=== PATIENT | male | born 1995 | race African-American/Black ===

== ENCOUNTER → 2023-03-25 | Emergency (ER) | payer BC ==
--- OUTSIDE RECORDS SUMMARY | 2023-03-25 20:14 | XMS REPORT | Continuity of Care Document ---
Author Name Unknown Address [address] [facility] [address] [place] [address] [facility] Address [address] [facility] [address] [place] [address] Care Team Providers Care Sleeve Turner Name Role Phone Minnie Stearns Attending Clinician Unavailable Problems Condition Name Condition Details Condition Category Status Onset Date Resolution Date Last Treatment Date Treating Clinician Comments Source [id number] Primary insomnia Problem [facility] [id number] Possible exposure to STD Problem [facility] [id number] Fatigue, unspecifie d type Problem [facility] Social History Social Habit Start Date Stop Date Quantity Comments Source History of Tobacco Use [facility] Sex Assigned At [facility] Smoking Status Start Date Stop Date Source Never Smoker [facility] Medications Ordered Medication Name Filled Medication Name Start Date Stop Date Current Medication? Ordering Clinician Indication Dosage Frequency Signature (SIG) Comments Components Source No Known Medications No Known Medications No [facility] No Known Medications No Known Medications No [facility] No Known Medications No Known Medications No [facility] No Known Medications No Known Medications No [facility] Vital Signs Vital Name Observation Time Observation Value Comments S ource height 2022-09-15 08:00:00 75 [in_i] Commo n [facility] weight 2022-09-15 08:00:00 227.4 [lb_av] Co mmon [facility] temperature 2022-09-15 08:00:00 97.8 [degF] Com mon [facility] bmi 2022-09-15 08:00:00 28.42 kg/m2 Comm on [facility] oximetry 2022-09-15 08:00:00 97 % Commo n [facility] respiratory rate 2022-09-15 08:00:00 16 /min Common [facility] blood pressure systolic 2022-09-15 08:00:00 135 mm[Hg] [facility] blood pressure diastolic 2022-09-15 08:00:00 76 mm[Hg] Common [facility] height 2022-03-17 08:40:00 75 [in_i] Commo n [facility] weight 2022-03-17 08:40:00 208.4 [lb_av] Co [facility] temperature 2022-03-17 08:40:00 98.4 [degF] Com [facility] bmi 2022-03-17 08:40:00 26.05 kg/m2 Comm on [facility] oximetry 2022-03-17 08:40:00 97 % Commo n [facility] respiratory rate 2022-03-17 08:40:00 16 /min Common [facility] blood pressure systolic 2022-03-17 08:40:00 136 mm[Hg] Common [facility] blood pressure diastolic 2022-03-17 08:40:00 72 mm[Hg] Common [facility] height 2021-09-15 08:40:00 Commo n [facility] weight 2021-09-15 08:40:00 205 [lb_av] Comm on [facility] temperature 2021-09-15 08:40:00 97.8 [degF] Com mon [facility] bmi 2021-09-15 08:40:00 25.62 kg/m2 Comm on [facility] oximetry 2021-09-15 08:40:00 100 % Commo n [facility] respiratory rate 2021-09-15 08:40:00 18 /min Common [facility] blood pressure systolic 2021-09-15 08:40:00 119 mm[Hg] [facility] blood pressure diastolic 2021-09-15 08:40:00 62 mm[Hg] [facility] height 2021-09-01 09:00:00 Commo n [facility] weight 2021-09-01 09:00:00 203.4 [lb_av] Co mmon [facility] temperature 2021-09-01 09:00:00 97.2 [degF] Com mon [facility] bmi 2021-09-01 09:00:00 25.42 kg/m2 Comm on [facility] oximetry 2021-09-01 09:00:00 99 % Commo n [facility] respiratory rate 2021-09-01 09:00:00 16 /min [facility] blood pressure systolic 2021-09-01 09:00:00 129 mm[Hg] [facility] blood pressure diastolic 2021-09-01 09:00:00 73 mm[Hg] [facility] Encounters Start Date/Time End Date/Time Encounter Type Admission Type Attending Clinicians Care Facility Care Department Encounter ID Source 2022-09-13 07:38[id number] [facility] 2022-03-15 09:10:05 Outpatient Minnie Stearns [facility] [id number] [facility] 2021-10-14 16:12:01 Outpatient Minnie Stearns [facility] [id number] [facility] 2021-09-01 09:13:02 Outpatient Minnie Stearns [facility] [id number] [facility] 2022-09-15 00:00:00 2022-09-15 00:00:00 [facility] [id number] 2022-03-17 00:00:00 2022-03-17 00:00:00 [facility]V VISIT EST AGE 18-39 [facility] [id number] [facility] 2021-09-15 00:00:00 2021-09-15 00:00:00 OFF[facility]IT EST [facility] [id number] [facility] 2021-09-12 00:00:00 2021-09-12 00:00:00 [facility]EL[facility] [id number] [facility] 2021-09-01 00:00:00 2021-09-01 00:00:00 OFFICE VISIT NEW PT LEVEL 3 [facility] [id number] [facility] Results Test Description Test Time Test Comments Results Result Co mments Source RPR REFLEX TO [id number] 00:00:00* Test Item Value Reference Range Interpretation Comme nts RPR (test code = 84531-4) NON-REACTIVE NON-REACTIVE RPR TITER (test code = 10591-9) NOT INDIC. TITER NOT INDIC. TITER HIV 1/2 4TH GEN, RFLX [id number] 00:00:00* Test Item Value Reference Range Interpretation Comme nts HIV 1/2 4TH GEN, RFLX CONF ( test code = 74600-8) NON-REACTIVE NON-REACTIVE TRICHOMONAS, URINE, [id number] 00:00:00* Test Item Value Reference Range Interpretation Comme nts TRICHOMONAS, NAAT (test code = 70537-4) TEST NOT PERFORMED NEGATIVE IRON BINDING CAPACITY AND IRON AND % [id number] 00:00:00* Test Item Value Reference Range Interpretation Comme nts IRON, SERUM (test code = 2498-4) 99 UG/DL See_Comment [Automated messa ge] The system which generated this result transmitted reference range: 59-158 UG/DL. The reference range was not used to interpret this result as normal/abnormal. UNSATURATED IBC (test code = 2501-5) 276 UG/DL See_Comment [Automated messa ge] The system which generated this result transmitted reference range: 112-347 UG/DL. The reference range was not used to interpret this result as normal/abnormal. CALC TOTAL IBC (test code = 16746-7) 375 UG/DL See_Comment [Automated messa ge] The system which generated this result transmitted reference range: 250-450 UG/DL. The reference range was not used to interpret this result as normal/abnormal. CALC % IRON SAT (test code = 2502-3) 26 % See_Comment [Automated messa ge] The system which generated this result transmitted reference range: 20-50 %. The reference range was not used to interpret this result as normal/abnormal. VITAMIN B 12 AND FOLIC [id number] 00:00:00* Test Item Value Reference Range Interpretation Comme nts VITAMIN B-12 (test code = 2132-9) 487 PG/ML See_Comment [Automated messa ge] The system which generated this result transmitted reference range: 200-950 PG/ML. The reference range was not used to interpret this result as normal/abnormal. FOLIC ACID (test code = 2284-8) 16.4 UG/L SEE BELOW UG/L CT/NG, TMA, [id number] 00:00:00* Test Item Value Reference Range Interpretation Comme nts GONORRHEA, NAAT (test code = 25690-9) NEGATIVE NEGATIVE CHLAMYDIA, NAAT (test code = 70843-4) NEGATIVE NEGATIVE COMPREHENSIVE METABOLIC [id number] 00:00:00* Test Item Value Reference Range Interpretation Comme nts GLUCOSE (test code = 1558-6) 84 MG/DL See_Comment [Automated messa ge] The system which generated this result transmitted reference range: 70-99 MG/DL. The reference range was not used to interpret this result as normal/abnormal. BUN (test code = 3094-0) 14 MG/DL See_Comment [Automated messa ge] The system which generated this result transmitted reference range: 6-20 MG/DL. The reference range was not used to interpret this result as normal/abnormal. CREATININE (test code = 2160-0) 0.91 MG/DL See_Comment [Automated [place] ge] The system which generated this result transmitted reference range: 0.80-1.40 MG/DL. The reference range was not used to interpret this result as normal/abnormal. eGFR (2020 CKD-EPI) (test code = 36919-2) 118 ML/MIN/1.73 See_Comment [Automated message] The system which generated this result transmitted reference range: >60 ML/MIN/1.73. The reference range was not used to interpret this result as normal/abnormal. CALC BUN/CREAT (test code = 3097-3) 15 RATIO See_Comment [Automated [place] ge] The system which generated this result transmitted reference range: 6-28 RATIO. The reference range was not used to interpret this result as normal/abnormal. SODIUM (test code = 2951-2) 141 MEQ/L See_Comment [Automated [place] ge] The system which generated this result transmitted reference range: 133-146 MEQ/L. The reference range was not used to interpret this result as normal/abnormal. POTASSIUM (test code = 2823-3) 4.2 MEQ/L See_Comment [Automated [place] ge] The system which generated this result transmitted reference range: 3.5-5.4 MEQ/L. The reference range was not used to interpret this result as normal/abnormal. CHLORIDE (test code = 2075-0) 102 MEQ/L See_Comment [Automated [place] ge] The system which generated this result transmitted reference range: 95-107 MEQ/L. The reference range was not used to interpret this result as normal/abnormal. CARBON DIOXIDE (test code = 1963-8) 26 MEQ/L See_Comment [Automated [place] ge] The system which generated this result transmitted reference range: 19-31 MEQ/L. The reference range was not used to interpret this result as normal/abnormal. CALCIUM (test code = 29507-1) 9.5 MG/DL See_Comment [Automated [place] ge] The system which generated this result transmitted reference range: 8.5-10.5 MG/DL. The reference range was not used to interpret this result as normal/abnormal. PROTEIN, TOTAL (test code = 2885-2) 7.7 G/DL See_Comment [Automated messa ge] The system which generated this result transmitted reference range: 6.1-8.3 G/DL. The reference range was not used to interpret this result as normal/abnormal. ALBUMIN (test code = 1751-7) 4.6 G/DL See_Comment [Automated messa ge] The system which generated this result transmitted reference range: 3.5-5.2 G/DL. The reference range was not used to interpret this result as normal/abnormal. CALC GLOBULIN (test code = 19779-4) 3.1 G/DL See_Comment [Automated messa ge] The system which generated this result transmitted reference range: 1.9-3.7 G/DL. The reference range was not used to interpret this result as normal/abnormal. CALC A/G RATIO (test code = 1759-0) 1.5 RATIO See_Comment [Automated messa ge] The system which generated this result transmitted reference range: 1.0-2.6 RATIO. The reference range was not used to interpret this result as normal/abnormal. BILIRUBIN, TOTAL (test code = 1975-2) 0.4 MG/DL See_Comment [Automated message] The system which generated this result transmitted reference range: <=1.2 MG/DL. The reference range was not used to interpret this result as normal/abnormal. ALKALINE PHOSPHATASE (test code = 6768-6) 61 U/L See_Comment [Automated message] The system which generated this result transmitted reference range: 40-115 U/L. The reference range was not used to interpret this result as normal/abnormal. AST (test code = 1920-8) 20 U/L See_Comment [Automated messa ge] The system which generated this result transmitted reference range: 9-50 U/L. The reference range was not used to interpret this result as normal/abnormal. ALT (test code = 1742-6) 16 U/L See_Comment [Automated messa ge] The system which generated this result transmitted reference range: 5-50 U/L. The reference range was not used to interpret this result as normal/abnormal. ACUTE HEPATITIS [id number] 00:00:00* Test Item Value Reference Range Interpretation Comme nts HEPATITIS A IgM (test code = 69537-2) NON-REACTIVE NON-REACTIVE HEPATITIS B CORE IgM (test c ode = 61223-0) NON-REACTIVE NON-REACTIVE HEPATITIS B SURF AG (test co de = 5195-3) NON-REACTIVE NON-REACTIVE HEPATITIS C ANTIBODY (test c ode = 48961-3) NON-REACTIVE NON-REACTIVE
--- NOTE | 2023-03-25 20:56 | ER ---
Nurse's Notes [facility] Name: Onofre Avalos Age: 27 yrs Sex: Male : 1995 Arrival Date: 03/25/2023 Time: 20:12 Bed IW6 Private MD: Diagnosis: Otitis media, unspecified, left ear Presentation: 03/25 20:51 Chief complaint: Patient states: LEFT EAR PAIN x1 DAY WITH TINNITUS, 1 WK RSV AT WORK. hb Coronavirus screen: At this time, the client does not indicate any symptoms associated with coronavirus-19. Ebola Screen: No symptoms or risks identified at this time. Initial Sepsis Screen: Does the patient meet any 2 criteria? No. Patient's initial sepsis screen is negative. Does the patient have a suspected source of infection? No. Patient's initial sepsis screen is negative. Risk Assessment: Do you want to hurt yourself or someone else? Patient reports no desire to harm self or others. Onset of symptoms was March 25, 2023. 20:51 Method Of Arrival: Ambulatory hb 20:51 Acuity: ROGER 5 hb Historical: - Allergies: 20:53 No Known Allergies; hb - Home Meds: 20:53 None [Active]; hb - PMHx: 20:53 None; hb - Immunization history:: Adult Immunizations up to date. - Social history:: Smoking status: Patient denies any tobacco usage or history of. Screenin:17 [facility] ED Fall Risk Assessment (Adult) History of falling in the last 3 months, hb including since admission No falls in past 3 months (0 pts). Abuse screen: Denies threats or abuse. Denies injuries from another. Nutritional screening: No deficits noted. Tuberculosis screening: No symptoms or risk factors identified. Vital Signs: 20:51 Pulse 94; Resp 16; Temp 97.8; Pulse Ox 100% ; Weight 90.72 kg; Height 6 ft. 2 in. ; hb 20:51 Body Mass Index 25.68 (90.72 kg, 187.96 cm) hb ED Course: 20:15 Patient arrived in ED. [email or web address] 20:27 Rad[facility] Wagner [facility]-C [facility] kb 20:27 Larry Parker MD is Attending Physician. kb 20:53 Triage completed. hb 20:53 Arm band placed on. hb 21:17 Patient has correct armband on for positive identification. hb 21:17 No provider procedures requiring assistance completed. Patient did not have IV access hb during this emergency room visit. Administered Medications: No medications were administered Outcome: 20:55 Discharge ordered by . rachell 21:17 Discharged to home ambulatory, hb 21:17 Condition: stable 21:17 Discharge instructions given to patient, Instructed on discharge instructions, follow up and referral plans. medication usage, Demonstrated understanding of instructions, follow-up care, medications, Prescriptions given X 1, 21:18 Patient left the ED. hb Signatures: Radha Wagner, CERTIFIED PUBLIC ACCOUNTANT-C CERTIFIED PUBLIC ACCOUNTANT-Ckb Irene Lopez, RN RN Nat Angel jj6
--- NOTE | 2023-03-25 20:56 | EDPHYS ---
Physician Documentation [facility] Name: Onofre Avalos Age: 27 yrs Sex: Male : 1995 Arrival Date: 03/25/2023 Time: 20:12 Bed IW6 Private MD: ED Physician Larry Parker HPI: 03/25 20:54 This 27 yrs old Male presents to ER via Ambulatory with complaints of Ear Pain. kb 20:54 Patient is a 27-year-old male who presents for left ear pain that started today. States kb he had cough and congestion over the last week that has gotten better but his ear started hurting him today so he wanted to get it checked out. Denies fever.. Historical: - Allergies: 20:53 No Known Allergies; hb - Home Meds: 20:53 None [Active]; hb - PMHx: 20:53 None; hb - Immunization history:: Adult Immunizations up to date. - Social history:: Smoking status: Patient denies any tobacco usage or history of. ROS: 20:54 Constitutional: Negative for fever, chills, and weight loss, kb 20:54 ENT: Positive for ear pain, 20:54 All other systems are negative, Exam: 20:54 Constitutional: This is a well developed, well nourished patient who is awake, alert, kb and in no acute distress. Head/Face: Normocephalic, atraumatic. Cardiovascular: Regular rate Respiratory: Respirations even and unlabored. No increased work of breathing. Talking in full sentences Skin: Warm, dry with normal turgor. Normal color. MS/ Extremity: Pulses equal, no cyanosis. Neurovascular intact. Full, normal range of motion. Neuro: Awake and alert, GCS 15, oriented to person, place, time, and situation. Moves all extremities. Normal gait. 20:54 ENT: External ear(s): are unremarkable, Ear canal(s): are normal, TM's: bulging, on the left, erythema, that is moderate, on the left, Vital Signs: 20:51 Pulse 94; Resp 16; Temp 97.8; Pulse Ox 100% ; Weight 90.72 kg; Height 6 ft. 2 in. ; hb 20:51 Body Mass Index 25.68 (90.72 kg, 187.96 cm) hb MDM: 20:27 Patient medically screened. kb 20:54 Differential diagnosis: otitis media, otitis externa, ruptured TM, foreign body, acute kb otalgia. Data reviewed: vital signs, nurses notes. Counseling: I had a detailed discussion with the patient and/or guardian regarding the historical points, exam findings, and any diagnostic results supporting the discharge/admit diagnosis, the need for outpatient follow up, a family practitioner, to return to the emergency department if symptoms worsen or persist or if there are any questions or concerns that arise at home. Administered Medications: No medications were administered Disposition Summary: 03/25/23 20:55 Discharge Ordered Notes: Location: Home kb Condition: Stable kb Diagnosis - Otitis media, unspecified, left ear kb Followup: kb - With: Emergency Department - When: As needed - Reason: Worsening of condition Followup: kb - With: Private Physician - When: 2 - 3 days - Reason: Recheck today's complaints, Continuance of care, Re-evaluation by your physician Discharge Instructions: - Discharge Summary Sheet kb - Otitis Media, Adult, Bply-yd-Npin kb Forms: - Medication Reconciliation Form kb - Thank You Letter kb - Antibiotic Education kb - Prescription Opioid Use kb - Patient Portal Instructions kb - Leadership Thank You Letter kb Prescriptions: - Amoxicillin 875 mg Oral Tablet - take 1 tablet ORAL route every 12 hours for 10 days; 20 tablet; Refills: 0, kb Product Selection Permitted Addendum: 03/26/2023 22:28 I was immediately available for consultation during this patient's visit. I did not e c2 personally see the patient or guide the patient's care. . Signatures: Radha Wagner FNP-C FNP-Irene Lloyd, RN RN Larry Montez MD MD ec2
[2023-03-25 23:34] VITALS: TEMP 97.8; O2SAT 100
== END ==
LOC: ER 20:12
DX: H66.92 Otitis media, unspecified, left ear (principal)
CPT/HCPCS: 99283